=== PATIENT | male | born 1965 | race Caucasian/White ===

== ENCOUNTER 2017-03-14 08:17 | Day surgery (SDC) | payer OTHER ==
[2017-03-14] MEDS ORDERED: LACTATED RINGERS 1,000 ML IV ONE (08:56)
--- NOTE | 2017-03-14 10:04 | HISTORY & PHYSICAL EXAMINATION ---
HPI - History of Present Illness HPI Comment/Other: Juan Pablo is here for screening colonoscopy. Current Meds: ASPIRIN EC 81 MG TBEC (ASPIRIN) Take one tablet by mouth daily LUNESTA 2 MG TABS (ESZOPICLONE) Take one tablet by mouth at bedtime as needed for sleep NIACIN 500 MG TABS (NIACIN) Take one tablet by mouth daily SHILPA ALLERGY 180 MG TABS (FEXOFENADINE HCL) Take one tablet by mouth daily Allergies: ZOCOR (Critical) LIPITOR (Critical) AMOXICILLIN (Critical) FLU VACCINE (Critical) Past Medical History: Reviewed history and no changes required: Hyperlipidemia YENNY /CPAP Family History Summary: Reviewed history and no changes required: 01/02/2017 Father () - Has Family History of Heart Disease - Entered On: 01/02/2017 Father () - Has a father - Entered On: 01/02/2017 Social History: Reviewed history and no changes required: Smoking History: Patient has never smoked. Risk Factors: Smoked Tobacco Use: Never smoker Alcohol use: yes Drinks per day: 1 Problems were reviewed with the patient during this visit. Medications were reviewed with the patient during this visit. Allergies were reviewed with the patient during this visit. Allergies: ZOCOR (Critical) LIPITOR (Critical) AMOXICILLIN (Critical) FLU VACCINE (Critical) Physical Exam General: well developed, well nourished, in no acute distress Lungs: clear bilaterally to A & P Heart: regular rate and rhythm, S1, S2 without murmurs, rubs, gallops, or clicks Abdomen: bowel sounds positive; abdomen soft and non-tender without masses, organomegaly, or hernias noted Pulses: pulses normal in all 4 extremities Extremities: no clubbing, cyanosis, edema, or deformity noted with normal full range of motion of all joints Cervical Nodes: no significant adenopathy Psych: alert and cooperative; normal mood and affect; normal attention span and concentration Problems: Problems Added: 1) Dx of Hyperlipidemia ([id number]) (ICD-272.4) Impression & Recommendations: Problem # 1: screening for colon cancer Proceed with colonoscopy PMH/PSH - Past Medical History Cardiovascular: positive: High cholesterol Respiratory: positive: Sleep apnea, CPAP use Endocrine/Autoimmune: positive: None GI: positive: None : positive: None HEENT: positive: Chronic vision loss Psych: positive: Anxiety Musculoskeletal: positive: Osteoarthritis Derm: positive: None MRSA Hx?: No - Past Surgical History Ortho: positive: Arthroscopic surgery HEENT: positive: Tonsil/Adenoidectomy Social & Family Hx - Social History Does the pt smoke?: No Smoking Status: Never smoker Does the pt drink ETOH?: No ETOH Use: Liquor Does the pt have substance abuse?: No - POLST Patient has POLST: No Meds/Allgy - Home Medications Home Medications: Ambulatory Orders Medication Instructions Recorded Confirmed Eszopiclone [Lunesta] 1 mg PO DAILY 04/14/16 03/13/17 Niacin 500 mg PO DAILY 04/14/16 03/13/17 Cranberry Fruit Extract [Cranberry] 200 mg PO DAILY 08/27/16 03/13/17 Multivitamin [Multiple Vitamins] 1 each PO DAILY 08/27/16 03/13/17 Red Yeast Rice 600 mg PO DAILY 08/27/16 03/14/17 Sumatriptan [Imitrex] 25 mg PO ONCE 08/27/16 03/13/17 Aspirin [Low Dose Aspirin EC] 81 mg PO DAILY 09/05/16 03/13/17 Fexofenadine HCl [Shilpa Allergy] 180 mg PO DAILY 09/05/16 03/13/17 - Allergies Allergies/Adverse Reactions: Allergies Allergy/AdvReac Type Severity Reaction Status Date / Time amoxicillin Allergy Rash Verified 04/14/16 20:53 yellow fever vaccine live AdvReac Unknown Verified 08/27/16 10:15 cholesterol meds Allergy pain in Uncoded 04/14/16 20:53 legs flu vaccine Allergy Unknown Uncoded 04/14/16 20:53 Exam - Vital Signs Vital Signs: Vital Signs x48h Temp Pulse Resp BP 03/14/17 08:30 36.9 C 74 18 120/81 H
[2017-03-14] MEDS ORDERED: MIDAZOLAM 2 MG/2 ML VIAL IVP ONE (10:06)
[2017-03-14] MEDS ORDERED: fentaNYL 100 MCG/2 ML VIAL IVP ONE (10:06)
[2017-03-14 11:08] VITALS: BP 112/62
== END 2017-03-14 08:18 | disposition home or self-care (01) ==
LOC: SDS 08:17
PROVIDERS: ATTEND Surgery
PROC: 0DBL8ZX Excision of Transverse Colon, Via Natural or Artificial Opening Endoscopic, Diagnostic (ICD-10-PCS; principal; 2017-03-14 09:45)
DX: Z12.11 Encounter for screening for malignant neoplasm of colon (principal); D12.3 Benign neoplasm of transverse colon; K64.8 Other hemorrhoids; E78.5 Hyperlipidemia, unspecified; G47.33 Obstructive sleep apnea (adult) (pediatric); Z82.49 Family history of ischemic heart disease and other diseases of the circulatory system; Z79.82 Long term (current) use of aspirin; Z88.0 Allergy status to penicillin
CPT/HCPCS: 45380; J7120; 88305

== ENCOUNTER 2017-03-25 17:03 | Emergency (ER) | payer OTHER ==
[2017-03-25 17:17] VITALS: BP 122/67
[2017-03-25] MEDS ORDERED: AZITHROMYCIN 250 MG TABLET PO STA (18:51)
--- NOTE | 2017-03-25 18:53 | ED Physician Documentation ---
PD HPI HEENT - Stated complaint Stated Complaint: THROAT/EAR PX - Chief complaint Chief Complaint: Heent - History obtained from History obtained from: Patient - History of Present Illness Timing - onset: Other (4 weeks of increasing sinus pressure and green drainage with low-grade fevers.) Timing - details: Gradual onset Review of Systems Constitutional: reports: Fever, Chills, Myalgias, Fatigue Ears: reports: Ear pain Nose: reports: Rhinorrhea / runny nose, Congestion, Sinus pressure / pain Throat: reports: Sore throat PD PAST MEDICAL HISTORY - Past Medical History Cardiovascular: High cholesterol Respiratory: Sleep apnea, CPAP use Endocrine/Autoimmune: None GI: None : None HEENT: Chronic vision loss Psych: Anxiety Musculoskeletal: Osteoarthritis Derm: None - Past Surgical History Past Surgical History: No Ortho: Arthroscopic surgery HEENT: Tonsil/Adenoidectomy - Present Medications Home Medications: Ambulatory Orders Medication Instructions Recorded Confirmed Eszopiclone [Lunesta] 1 mg PO DAILY 04/14/16 03/25/17 Niacin 500 mg PO DAILY 04/14/16 03/25/17 Cranberry Fruit Extract [Cranberry] 200 mg PO DAILY 08/27/16 03/25/17 Multivitamin [Multiple Vitamins] 1 each PO DAILY 08/27/16 03/25/17 Red Yeast Rice 600 mg PO DAILY 08/27/16 03/25/17 Sumatriptan [Imitrex] 25 mg PO ONCE PRN 08/27/16 03/13/17 Aspirin [Low Dose Aspirin EC] 81 mg PO DAILY 09/05/16 03/25/17 Fexofenadine HCl [Geraldine Allergy] 180 mg PO DAILY 09/05/16 03/25/17 Azithromycin [Zithromax] 250 mg PO DAILY #4 tablet 03/25/17 Fluticasone [Flonase] 1 sprays CHELSEY BID #1 bottle 03/25/17 - Allergies Allergies/Adverse Reactions: Allergies Allergy/AdvReac Type Severity Reaction Status Date / Time amoxicillin Allergy Rash Verified 03/25/17 18:47 yellow fever vaccine live AdvReac Unknown Verified 03/25/17 18:47 cholesterol meds Allergy pain in Uncoded 03/25/17 18:47 legs flu vaccine Allergy Unknown Uncoded 03/25/17 18:47 - Social History Does the pt smoke?: No Smoking Status: Never smoker Does the pt drink ETOH?: No Does the pt have substance abuse?: No - Immunizations Immunizations are current?: Yes - POLST Patient has POLST: No PD ED PE NORMAL - Vitals Vital signs reviewed: Yes - General General: Alert and oriented X 3, No acute distress - HEENT HEENT: Ears normal, Pharynx benign, Other (Moderate maxillary sinus tenderness bilaterally) - Neck Neck: Supple, no meningeal sign, No bony TTP - Cardiac Cardiac: RRR, No murmur - Respiratory Respiratory: No respiratory distress, Clear bilaterally - Abdomen Abdomen: Non tender - Neuro Neuro: Alert and oriented X 3, Normal speech - Psych Psych: Normal mood, Normal affect Results - Vitals Vitals: Vital Signs - 24 hr 03/25/17 17:15 Temperature 36.6 C Heart Rate 65 Respiratory 16 Rate Blood Pressure 122/67 O2 Saturation 99 Oxygen O2 Source Room air PD MEDICAL DECISION MAKING - ED course ED course: Given greater than 4 weeks of symptoms, he does meet criteria for antibiotic treatments. Departure - Departure Disposition: 01 Home, Self Care Clinical Impression: Sinusitis Qualifiers: Sinusitis location: maxillary Chronicity: chronic Qualified Code(s): J32.0 - Chronic maxillary sinusitis Condition: Good Record reviewed to determine appropriate education?: Yes Instructions: ED Sinusitis Abx Tx Prescriptions: Fluticasone [Flonase] 1 sprays CHELSEY BID #1 bottle Azithromycin [Zithromax] 250 mg PO DAILY #4 tablet Comments: Call your doctor to arrange a follow-up appointment, make the next available appointment. In the interim, return anytime if worse or if new symptoms develop.
[2017-03-25] MEDS ORDERED: AZITHROMYCIN 250 MG TABLET PO ONE (19:05)
== END 2017-03-25 19:07 | disposition home or self-care (01) ==
LOC: ED 17:03
DX: J32.0 Chronic maxillary sinusitis (principal); E78.00 Pure hypercholesterolemia, unspecified; G47.30 Sleep apnea, unspecified; M19.90 Unspecified osteoarthritis, unspecified site; Z79.82 Long term (current) use of aspirin
CPT/HCPCS: 99283; A9270

== ENCOUNTER 2018-08-15 13:10 | Emergency (ER) | payer OTHER ==
[2018-08-15 14:05] VITALS: BP 120/78
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
== END 2018-08-15 15:46 | disposition home or self-care (01) ==
LOC: ED 13:10
DX: S16.1XXA Strain of muscle, fascia and tendon at neck level, initial encounter (principal); M54.5 Low back pain; V49.40XA Driver injured in collision with unspecified motor vehicles in traffic accident, initial encounter; Y92.410 Unspecified street and highway as the place of occurrence of the external cause
CPT/HCPCS: 99283

== ENCOUNTER 2022-09-01 19:13 | Emergency (ER) | payer OTHER ==
--- NOTE | 2022-09-01 19:29 | ED Physician Documentation ---
PD HPI URI - Stated complaint Stated Complaint: FEVER - Chief complaint Chief Complaint: General - History obtained from History obtained from: Patient - History of Present Illness Timing - onset: How many days ago (3) Timing duration: Days (3) Timing details: Abrupt onset, Still present Associated symptoms: Fever, Chills, Nasal congestion, Sinus pain, Dry cough, Chest pain (with coughing). No: Dyspnea Contributing factors: No: Sick contact, Immunocompromised, Unimmunized Recently seen: Not recently seen Review of Systems Constitutional: reports: Fever, Chills, Myalgias (significant), Fatigue Nose: reports: Rhinorrhea / runny nose, Congestion Throat: denies: Sore throat Cardiac: reports: Chest pain / pressure. denies: Palpitations Respiratory: reports: Dyspnea, Cough. denies: Wheezing GI: reports: Nausea, Vomiting (with coughing hard.). denies: Diarrhea Skin: denies: Rash Neurologic: reports: Generalized weakness, Headache. denies: Near syncope, Altered mental status PD PAST MEDICAL HISTORY - Past Medical History Cardiovascular: High cholesterol Respiratory: Sleep apnea, CPAP use Endocrine/Autoimmune: None GI: None : None HEENT: Chronic vision loss Psych: Anxiety Musculoskeletal: Osteoarthritis Derm: None - Past Surgical History Past Surgical History: No Ortho: Arthroscopic surgery HEENT: Tonsil/Adenoidectomy - Present Medications Home Medications: Ambulatory Orders Medication Instructions Recorded Confirmed Eszopiclone [Lunesta] 1 mg PO DAILY 04/14/16 03/25/17 Niacin 500 mg PO DAILY 04/14/16 03/25/17 Cranberry Fruit Extract [Cranberry] 200 mg PO DAILY 08/27/16 03/25/17 Multivitamin [Multiple Vitamins] 1 each PO DAILY 08/27/16 03/25/17 SUMAtriptan [Imitrex] 25 mg PO ONCE PRN 08/27/16 09/01/22 Fluticasone [Flonase] 1 sprays CHELSEY BID #1 bottle 03/25/17 Cetirizine [ZyrTEC] 08/15/18 Benzonatate [Tessalon] 100 mg PO TID PRN #20 cap 09/01/22 Ibuprofen [Motrin] 600 mg PO TID PRN #25 tab 09/01/22 Oseltamivir [Tamiflu] 75 mg PO BID #10 cap 09/01/22 - Allergies Allergies/Adverse Reactions: Allergies Allergy/AdvReac Type Severity Reaction Status Date / Time amoxicillin Allergy Rash Verified 09/01/22 19:42 COVID-19 vaccine, mRNA, Allergy Rash Verified 09/01/22 19:42 [id number], L nortriptyline AdvReac Unknown Verified 09/01/22 19:42 yellow fever vaccine live AdvReac Unknown Verified 09/01/22 19:42 cholesterol meds Allergy pain in Uncoded 09/01/22 19:42 legs flu vaccine Allergy Unknown Uncoded 09/01/22 19:42 - Social History Does the pt smoke?: No Smoking Status: Never smoker Does the pt drink ETOH?: No Does the pt have substance abuse?: No - Immunizations Immunizations are current?: Yes - POLST Patient has POLST: No PD ED PE NORMAL - Vitals Vital signs reviewed: Yes - General General: Alert and oriented X 3, No acute distress, Well developed/nourished - HEENT HEENT: Ears normal, Moist mucous membranes, Pharynx benign - Neck Neck: Supple, no meningeal sign, No adenopathy - Cardiac Cardiac: RRR, No murmur - Respiratory Respiratory: Clear bilaterally - Derm Derm: Normal color, Warm and dry, No rash - Neuro Neuro: Alert and oriented X 3, No motor deficit, Normal speech Results - Vitals Vitals: Oxygen O2 Source Room air - Labs Labs: Laboratory Tests 09/01/22 20:09 Influenza A (Rapid) POSITIVE H Influenza B (Rapid) Negative PD MEDICAL DECISION MAKING - ED course Complexity details: reviewed results, considered differential (seems flu-like), d/w patient Departure - Departure Disposition: 01 Home, Self Care Clinical Impression: Influenza A, Viral syndrome Condition: Stable Record reviewed to determine appropriate education?: Yes Instructions: ED Flu Follow-Up: GUS GUDINO MD [Primary Care Provider] - Prescriptions: Ibuprofen [Motrin] 600 mg PO TID PRN #25 tab PRN Reason: Pain Oseltamivir [Tamiflu] 75 mg PO BID #10 cap Benzonatate [Tessalon] 100 mg PO TID PRN #20 cap PRN Reason: Cough Comments: You do have influenza A (the flu) which would certainly account for your symptoms. Try to stay well-hydrated. Tamiflu/oseltamivir can try to take the blunt the degree of symptoms is also not quite as bad. But typically expect 5 to 7 days of illness. Stay well-hydrated. Continue ibuprofen 3-4 times daily for pains and fevers. Add benzonatate/Tessalon if needed for cough. I sent your prescriptions to [facility] in [place]. Discharge Date/Time: 09/01/22 21:34
[2022-09-01] MEDS ORDERED: BENZONATATE 100 MG CAPSULE PO STA (20:03)
[2022-09-01 20:56] VITALS: BP 124/75
[2022-09-01] MEDS ORDERED: OSELTAMIVIR 75 MG CAPSULE PO STA (21:08)
[2022-09-01] MEDS ORDERED: CETIRIZINE 10 MG TABLET PO STA (21:09)
== END 2022-09-01 21:34 | disposition home or self-care (01) ==
LOC: ED 19:13
DX: J10.1 Influenza due to other identified influenza virus with other respiratory manifestations (principal)
CPT/HCPCS: 87275; 87276; 99282; 99283; A9270

== ENCOUNTER 2022-10-04 19:56 | Emergency (ER) | payer OTHER ==
--- NOTE | 2022-10-04 20:17 | ED Physician Documentation ---
PD HPI HEAD INJURY - Stated complaint Stated Complaint: FALL, BACK/HEAD PX - Chief complaint Chief Complaint: Trauma Hd/Nk - History obtained from History obtained from: Patient, Family (spouse, who gives her perspective on his symptoms.) - History of Present Illness Mechanism of head injury: Fell (he slipped and fell backward while walking down few steps into garage to get more groceries from car. Landed striking back of head, left upper back. Had pain head, and feeling foggy, blurred vision, nausea. Has neck pain and shoulder pain with numbness left little/ring fingers. Did not strike elbow.) Timing - onset: How many hours ago (1), Today Location of injury: Back Quality of pain: Pain Associated symptoms: AMS (feeling foggy and slow processing thoughts.), Nausea / vomiting, Neck pain, Paresthesias (left little/ring fingers). No: LOC Symptoms worsen with: Palpation, Movement Contributing factors: No: Anticoagulated, Intoxicated Similar symptoms before: Has not had sx before Review of Systems Constitutional: denies: Fever, Chills Eyes: reports: Decreased vision. denies: Loss of vision, Photophobia Ears: denies: Tinnitus/ringing Nose: denies: Rhinorrhea / runny nose, Congestion Throat: denies: Sore throat Respiratory: denies: Cough Neurologic: reports: Headache, Head injury. denies: Focal weakness, Difficulty speaking, Syncope, LOC PD PAST MEDICAL HISTORY - Past Medical History Cardiovascular: High cholesterol Respiratory: Sleep apnea, CPAP use Endocrine/Autoimmune: None GI: None : None HEENT: Chronic vision loss Psych: Anxiety Musculoskeletal: Osteoarthritis Derm: None - Past Surgical History Past Surgical History: No Ortho: Arthroscopic surgery HEENT: Tonsil/Adenoidectomy - Present Medications Home Medications: Ambulatory Orders Medication Instructions Recorded Confirmed Eszopiclone [Lunesta] 1 mg PO DAILY 04/14/16 03/25/17 Niacin 500 mg PO DAILY 04/14/16 03/25/17 Cranberry Fruit Extract [Cranberry] 200 mg PO DAILY 08/27/16 03/25/17 Multivitamin [Multiple Vitamins] 1 each PO DAILY 08/27/16 03/25/17 SUMAtriptan [Imitrex] 25 mg PO ONCE PRN 08/27/16 09/01/22 Fluticasone [Flonase] 1 sprays CHELSEY BID #1 bottle 03/25/17 Cetirizine [ZyrTEC] 08/15/18 Benzonatate [Tessalon] 100 mg PO TID PRN #20 cap 09/01/22 Ibuprofen [Motrin] 600 mg PO TID PRN #25 tab 09/01/22 Oseltamivir [Tamiflu] 75 mg PO BID #10 cap 09/01/22 Naproxen 500 mg PO BID #20 tab 10/04/22 Oxycodone HCl/Acetaminophen 1 each PO Q6H PRN #12 tablet 10/04/22 [Percocet 5-325 mg Tablet] tiZANidine [Zanaflex] 4 mg PO Q8H PRN #25 tablet 10/04/22 - Allergies Allergies/Adverse Reactions: Allergies Allergy/AdvReac Type Severity Reaction Status Date / Time amoxicillin Allergy Rash Verified 10/04/22 20:07 COVID-19 vaccine, mRNA, Allergy Rash Verified 10/04/22 20:07 [id number], L nortriptyline AdvReac Unknown Verified 10/04/22 20:07 yellow fever vaccine live AdvReac Unknown Verified 10/04/22 20:07 cholesterol meds Allergy pain in Uncoded 10/04/22 20:07 legs flu vaccine Allergy Unknown Uncoded 10/04/22 20:07 - Social History Does the pt smoke?: No Smoking Status: Never smoker Does the pt drink ETOH?: No Does the pt have substance abuse?: No - Immunizations Immunizations are current?: Yes - POLST Patient has POLST: No PD ED PE NORMAL - Vitals Vital signs reviewed: Yes - General General: Alert and oriented X 3, No acute distress, Well developed/nourished - HEENT HEENT: Moist mucous membranes, Pharynx benign, Other (Tender in the occipital area with some mild swelling. No lacerations.) - Neck Neck: Supple, no meningeal sign, No adenopathy, Other (Tenderness in the left paracervical area without any obvious deformity.) - Cardiac Cardiac: RRR, No murmur - Respiratory Respiratory: Clear bilaterally - Abdomen Abdomen: Soft, Non tender - Back Back: Other (He is tender somewhat in the mid thoracic area between the scapula. There is also some tenderness in the posterior left shoulder but range of motion of the shoulder without deformity.) - Derm Derm: Normal color, Warm and dry - Neuro Neuro: No motor deficit, Other (He states some decrease sensation to touch in the left little and ring fingers. They have good color and no deformity.) Results - Vitals Vitals: Vital Signs - 24 hr 10/04/22 10/04/22 10/04/22 20:01 21:02 21:51 Temperature 36.8 C Heart Rate 69 76 75 Respiratory 19 18 19 Rate Blood Pressure 146/87 H 144/99 H 147/86 H O2 Saturation 97 94 93 Oxygen O2 Source Room air - Rads (name of study) head CT Radiology: Prelim report reviewed, EMP read indepedently (no ICH), See rad report cervical CT Radiology: Prelim report reviewed, EMP read indepedently (arthritic spurring lower cervial anterior ligaments. No fractures. ), See rad report thoracic spine CT Radiology: Prelim report reviewed (notd 3 mm nodule left lung with suggested follow up at interval to evaluate for change. ), EMP read indepedently (no fractures.), See rad report PD Medical Decision Making - ED course Complexity details: considered differential (The patient fell from slipping and struck the back of his head and shoulder and has pain in the mid cervical and thoracic spine as well. His states she noted him to be dazed and slow pr ocessing and thought and a little wobbly walking after the injury but no loss of consciousness.), d/w patient, d/w family (spouse) Reviewed Lab Results: CT of the head neck and thoracic area were done to evaluate for intracranial bleeding or fractures. These were reviewed by myself and also reviewed the radiologist reports. ED course: His cervical spine CT did not show any fractures no obvious disc problems nor misalignment. He has some numbness in the left little and ring finger and I think this is peripheral nerve from injury around the scapula and posterior shoulder and he may have struck his elbow as well though its not tender and has good range of motion. It does not seem to be cervical nerve root based on imaging. He does not have weakness in the hand. His head CT is without any signs of bleeding swelling or obvious injury. He is having some mild concussive symptoms and I would expect these to be for the next day or 2 at least. Commonly mild symptoms like this will decrease and be improved by 2 to 3 days. Departure - Departure Disposition: 01 Home, Self Care Clinical Impression: Fall from slip, trip, or stumble Qualifiers: Encounter type: initial encounter Qualified Code(s): W01.0XXA - Fall on same level from slipping, tripping and stumbling without subsequent striking against object, initial encounter Contusion of occipital region of scalp Qualifiers: Encounter type: initial encounter Qualified Code(s): S00.03XA - Contusion of scalp, initial encounter Mild concussion Qualifiers: Encounter type: initial encounter Loss of consciousness presence/duration: without LOC Qualified Code(s): S06.0X0A - Concussion without loss of consciousness, initial encounter Back contusion Qualifiers: Encounter type: initial encounter Laterality: left Qualified Code(s): S20.222A - Contusion of left back wall of thorax, initial encounter Condition: Stable Record reviewed to determine appropriate education?: Yes Instructions: ED Concussion, ED Contusion Back Follow-Up: GUS GUDINO MD [Primary Care Provider] - Prescriptions: Naproxen 500 mg PO BID #20 tab Oxycodone HCl/Acetaminophen [Percocet 5-325 mg Tablet] 1 each PO Q6H PRN #12 tablet PRN Reason: pain tiZANidine [Zanaflex] 4 mg PO Q8H PRN #25 tablet PRN Reason: Spasms Comments: Your CT scans of the head neck and thoracic spine are normal without any acute injury, fractures, disc protrusions. The thoracic CT reading did note a small nodule in the left lung field that is fairly small. This would want to be followed up with your primary care and suggestion may be reimaging in 6 months or so to ensure no increase in size etc. Most findings of this type are typically benign. For your current injuries, use ice or cool towels to the sore areas to help reduce swelling. Anti-inflammatory such as naproxen or ibuprofen 2-3 times daily for inflammation and pain. To that add tizanidine muscle relaxant for spasms and stiffness. Tylenol every 4-6 hours if needed for pain or oxycodone/acetaminophen if needed for worse pain. Your symptoms do sound like a mild concussion so expect a little lightheaded and blurred vision and slight confusion for the next day or 2 most likely. Off work for the next 2 days. It also sounds like you have some impact to the nurse for the shoulder causing the numbness in the little finger. No signs of it being caused by spine abnormalities. I would anticipate this improving as the shoulder bruising improves. I sent your prescriptions to your preferred pharmacy. I am prescribing a short course of narcotic pain medication for you. These are potentially dangerous and addictive medications that should be used carefully. These medications may constipate you. Take an dhrr-yec-[id number] stool softener such as docusate twice daily with plenty of water while taking these medications. If you go 24 hours without a bowel movement, take [id number] MiraLAX, per package instructions. Do not drink or drive while taking these medications. If you received narcotic or sedating medications while in the emergency department do not drive for 24 hours. Store this medication in a safe, secure place and out of reach of children. It is a violation of federal law to give or sell this medication to another person or to use in a manner other than prescribed. The ED will not refill narcotic prescriptions, including prescriptions lost or stolen. You can dispose of unwanted medications at the [facility]'s office or at several pharmacies such as [facility]. Forms: Activity restrictions Discharge Date/Time: 10/04/22 22:27
[2022-10-04] MEDS ORDERED: KETOROLAC 15 MG/ML VIAL IVP STA (20:31)
[2022-10-04] MEDS ORDERED: HYDROmorphone 1 MG/ML CARPUJECT IVP STA (20:31)
[2022-10-04] MEDS ORDERED: methocarbamoL 500 MG TABLET PO STA (20:33)
--- NOTE | 2022-10-04 21:30 | CT Report ---
PROCEDURE: HEAD WO INDICATIONS: fell backward: struck head, concussion sxs. TECHNIQUE: Noncontrast 4.5 mm thick angled axial sections acquired from the foramen magnum to the vertex. For r adiation dose reduction, the following was used: automated exposure control, adjustment of mA and/or kV according to patient size. COMPARISON: None. FINDINGS: Image quality: Excellent. CSF spaces: Basal cisterns are patent. No extra-axial fluid collections. Ventricles are normal in size and shape. Brain: No intracranial hemorrhage, mass, or mass effect. Christy-white matter interface appears preser alicia. Skull and face: Calvarium and visualized facial bones are intact, without suspicious lesions. Sinuses: Visualized sinuses and mastoids are clear. IMPRESSION: 1. No acute intracranial abnormality. Reviewed by: Ron Yuen MD on 10/04/2022 9:29 PM [facility] Approved by: Ron Yuen MD on 10/04/2022 9:29 PM [facility] Station ID: [id number]
--- NOTE | 2022-10-04 21:37 | CT Report ---
PROCEDURE: CERVICAL SPINE WO INDICATIONS: fell backward: head/neck/back pain TECHNIQUE: Noncontrast 3 mm thick sections acquired from the skull base to the T4 level. Sagittal and coronal r eformats were then constructed. For radiation dose reduction, the following was used: automated exp osure control, adjustment of mA and/or kV according to patient size. COMPARISON: None. FINDINGS: Image quality: Excellent. Bones: No fractures or subluxation. There is straightening of the cervical lordosis. Multilevel dege nerative disc disease and facet arthropathy are present. Visualized superior ribs are intact. Soft tissues: Prevertebral soft tissues are normal in thickness. No paravertebral hematomas. No ap ical pneumothoraces. IMPRESSION: 1. No fracture or subluxation. Reviewed by: Ron Yuen MD on 10/04/2022 9:35 PM [facility] Approved by: Ron Yuen MD on 10/04/2022 9:35 PM [facility] Station ID: [id number]
[2022-10-04 21:52] VITALS: BP 147/86
--- NOTE | 2022-10-04 21:54 | CT Report ---
PROCEDURE: THORACIC SPINE WO INDICATIONS: fell backward: head/neck/back pain TECHNIQUE: Noncontrast 3 mm thick sections acquired through the region of interest in the thoracic spine. Sagit isabella and coronal reformats were then constructed. For radiation dose reduction, the following was used : automated exposure control, adjustment of mA and/or kV according to patient size. COMPARISON: Concurrent CT study of the cervical spine. FINDINGS: Image quality: Excellent. Bones: There is preserved overall bony alignment. No acute vertebral body compression fractures. No traumatic subluxation. No suspicious sclerotic or lytic bony lesions. Central spinal canal is of no rmal overall caliber. Soft tissues: No paravertebral masses or hematomas. Visualized lungs demonstrate is 0.3 cm pulmonar y nodule in the left lower lobe on series 4 image 103. IMPRESSION: 1. No acute fracture or subluxation. 2. Left lower lobe 0.3 cm pulmonary nodule. If patient is at high risk for malignancy, a follow-up CT may be performed in 12 months to demonstrate stability. Reviewed by: Ron Yuen MD on 10/04/2022 9:53 PM PST Approved by: Ron Yuen MD on 10/04/2022 9:53 PM PST Station ID: [id number]
[2022-10-04] MEDS ORDERED: oxyCODONE/ACET 5/325 Prepack 4 PO STA (22:00)
[2022-10-04] MEDS ORDERED: ONDANSETRON ODT 4 MG Prepack 2 TL PRN (22:00)
[2022-10-04] MEDS ORDERED: ONDANSETRON 4 MG/2 ML VIAL IVP STA (22:00)
== END 2022-10-04 22:27 | disposition home or self-care (01) ==
LOC: ED 19:56
DX: S06.0X0A Concussion without loss of consciousness, initial encounter (principal); S00.03XA Contusion of scalp, initial encounter; S20.222A Contusion of left back wall of thorax, initial encounter; S40.012A Contusion of left shoulder, initial encounter; W10.9XXA Fall (on) (from) unspecified stairs and steps, initial encounter; Y93.89 Activity, other specified; Y92.008 Other place in unspecified non-institutional (private) residence as the place of occurrence of the external cause; R91.1 Solitary pulmonary nodule
CPT/HCPCS: 70450; 72125; 72128; 96374; 96375; 99284; A9270; J1170